=== PATIENT | male | born 1960 | race Caucasian/White ===

== ENCOUNTER → 2022-10-10 | Outpatient (CLI) | payer MEDICAID, SELFPAY ==
--- NOTE | 2022-10-10 13:06 | CT_ITS ---
INDICATION: SINUSITIS EXAMINATION: CT SINUSES - CT Sinuses W/O Contrast Injection TECHNIQUE: Helically acquired images were obtained of the paranasal sinuses. A radiation dose optimization technique was used for this scan. IV Contrast dosage and agent: None. COMPARISON: None. FINDINGS: FRONTAL SINUSES AND RECESSES: Minimal mucosal thickening left frontal sinus extending into the frontoethmoidal recess which is opacified. ETHMOID AIR CELLS: No significant sinus disease right ethmoid air cells. Left ethmoid air cells are also completely opacified. MAXILLARY SINUSES: Bilateral maxillary sinuses are completely opacified. Axilla sinus cao show thickening and sclerosis suggesting chronic infectious etiology. Additional ossification seen on along the roof of the left maxillary sinus. The left uncinate process and middle terminate is absent likely due to erosive changes. There is a replaced, somewhat lamellated irregular calcification in this area. Right uncinate process is also absent and the infundibulum is completely opacified. OSTIOMEATAL COMPLEXES: Erosive changes bilaterally. SPHENOID SINUSES: Trace mucosal thickening on the left. Patent sphenoethmoidal recesse. ANCILLARY FINDINGS: ORBITS: Unremarkable. VISUALIZED DENTITION: Absent molar teeth right maxilla. Periapical lucency left first and second molar. Small periapical lucency left mandibular central incisor Visualized intracranial contents included in the [id number] show no intracranial hemorrhage or mass lesion or mass effect. . Cerclage wire in the midline anterior maxilla. Moderate C1-C2 degenerative changes. CT/Sinus/Facial Bone IMPRESSION: Chronic sinus disease with erosive changes bilateral uncinate processes and left middle turbinate and significant maxillary sinus wall thickening consistent with periostitis. Irregular calcification in the region of the left middle turbinate. Mostly opacified left sphenoid sinus. Opacified left frontoethmoidal recess. Electronically Signed: Dhruv Markham DO at 22:21 EDT ,
== END | disposition home or self-care (01) ==
PROVIDERS: Referring Provider Otolaryngology; Visit Provider Otolaryngology
DX: J32.8 Other chronic sinusitis (principal)
CPT/HCPCS: 70486

== ENCOUNTER → 2022-10-17 | Outpatient (CLI) | payer MEDICAID, SELFPAY | END | disposition home or self-care (01) | LOC: LABSPEC 15:16 | PROVIDERS: Referring Provider Otolaryngology; Visit Provider Otolaryngology | DX: J01.90 Acute sinusitis, unspecified (principal) | CPT/HCPCS: 87070; 87205 ==

== ENCOUNTER 2022-11-12 06:32 | Day surgery (SDC) | payer MEDICAID, SELFPAY ==
[2022-11-12] VITALS (14 sets, daily range): BP systolic 139–194; BP diastolic 78–128; PULSE 67–96; RESP 16–17; TEMP 36.2–37.2; O2SAT 93–99; BMI 28.7
--- NOTE | 2022-11-12 | SEP_PTH ---
PATIENT: DYLLAN BURKS Jr. LOC: [facility] – [place] U#:[id number] AGE/SX: 62/M ROOM: RE11/12/[address]: Dr. Ricky Thornton MD : 1960 BED: DIS: 11/12/2022 SPEC #: [id number] RECD: 11/12/22 13:14 STATUS: MICHEL COLLINS #: [id number] OSMANI: 11/12/22 00:[address]: Ricky Thornton DEPT: SURGICAL PATHOLOGY RECD BY: Surya Lane Tissues: A - Nasal septum, NOS B - Ethmoid sinus, NOS C - Ethmoid sinus, NOS Procedures: Decalcification bone/plaque Special Stain Group I Surgery Specimen Level III GMS Stain (control) HEADER OPERATION: Functional endoscopic sinus surgery, septoplasty PRE-OP DIAGNOSIS: Chronic sinusitis, allergic rhinitis, nasal congestion, deviated septum, hypertrophy of nasal turbinates TISSUE SUBMITTED: A. Septum, B. Left sinus contents, C. Right sinus contents MICROSCOPIC DIAGNOSIS A. Nasal Septum, septoplasty: Fragments of hyalin cartilage and bone with reparative change (clinically deviated septum). B. Left sinus contents, curettings: Acute and chronic sinusitis. Fungal organisms consistent with aspergillus species. C. Right sinus contents, curettings: Chronic sinusitis. No evidence of fungal organisms. AM:sandra 11/14/22 MICROSCOPIC DESCRIPTION Slides are reviewed. GROSS DESCRIPTION A. Received in fixative is one container labeled with the patient's name and designated septum. The specimen consists of three fragments of bone and cartilage measuring in aggregate 2 x 1.5 x 0.2 cm. The specimen is totally submitted in one cassette after decalcification. B. Received is one container labeled with the patient name and designated left sinus contents. The specimen consists of multiple irregular fragments of hemorrhagic soft tissue mixed possible fragments of bone that in aggregate measure 5 x 5 x 2 cm. Food Service Ambassador tissue is submitted in two cassettes after decalcification. C. Received is one container labeled with the patient name and designated right sinus contents. The specimen consists of multiple irregular fragments of hemorrhagic soft tissue mixed possible fragments of bone that in aggregate measure 4 x 4 x 2 cm. Food Service Ambassador tissue is submitted in two cassettes after decalcification. /SJ: 11/12/22 TC:2 CPT:85227 x3, 96879 x2, 69803 x3
--- NOTE | 2022-11-12 | SEP_PTH ---
PATIENT: DYLLAN BURKS Jr. LOC: [facility] – [place] U#:[id number] AGE/SX: 62/M ROOM: RE11/12/[address]: Dr. Ricky Thornton MD : 1960 BED: DIS: 11/12/2022 SPEC #: [id number] RECD: 11/12/22 13:14 STATUS: MICHEL SARABIASayra #: [id number] OSMANI: 11/12/22 00:[address]: Ricky Thornton DEPT: SURGICAL PATHOLOGY RECD BY: Surya Lane Tissues: A - Nasal septum, NOS B - Ethmoid sinus, NOS C - Ethmoid sinus, NOS Procedures: Surgery Specimen Level III Surgery Specimen Level IV HEADER OPERATION: Functional endoscopic sinus surgery, septoplasty PRE-OP DIAGNOSIS: Chronic sinusitis, allergic rhinitis, nasal congestion, deviated septum, hypertrophy of nasal turbinates TISSUE SUBMITTED: A. Septum, B. Left sinus contents, C. Right sinus contents MICROSCOPIC DIAGNOSIS A. Nasal Septum, septoplasty: Fragments of hyalin cartilage and bone with reparative change (clinically deviated septum). B. Left sinus contents, curettings: Acute and chronic sinusitis. Fungal organisms consistent with aspergillus species. C. Right sinus contents, curettings: Chronic sinusitis. Fungal organisms consistent with aspergillus species. AM:am 11/14/22 MICROSCOPIC DESCRIPTION Slides are reviewed. GROSS DESCRIPTION A. Received in fixative is one container labeled with the patient's name and designated septum. The specimen consists of three fragments of bone and cartilage measuring in aggregate 2 x 1.5 x 0.2 cm. The specimen is totally submitted in one cassette after decalcification. B. Received is one container labeled with the patient name and designated left sinus contents. The specimen consists of multiple irregular fragments of hemorrhagic soft tissue mixed possible fragments of bone that in aggregate measure 5 x 5 x 2 cm. Brand Sales Consultant tissue is submitted in two cassettes after decalcification. C. Received is one container labeled with the patient name and designated right sinus contents. The specimen consists of multiple irregular fragments of hemorrhagic soft tissue mixed possible fragments of bone that in aggregate measure 4 x 4 x 2 cm. Brand Sales Consultant tissue is submitted in two cassettes after decalcification. /SJ: 11/12/22 TC:2 CPT:50061 x3, 99462 x2, 80093 x3
--- NOTE | 2022-11-12 06:51 | EKG12_ITS ---
Test Reason : PREOP Blood Pressure : / mmHG Vent. Rate : 052 BPM Atrial Rate : 052 BPM P-R Int : 150 ms QRS Dur : 098 ms QT Int : 398 ms P-R-T Axes : 028 018 008 degrees QTc Int : 370 ms Sinus bradycardia with sinus arrhythmia Nonspecific T wave abnormality Abnormal ECG No previous ECGs available Confirmed by PERRY MORENO, LUKAS ([id number]), assistant film editor JAIR BRIAN ([id number]) on 11/25/2022 12:18:27 PM Referred By: Scot Thornton Confirmed By:LUKAS AMADOR MD
[2022-11-12] MEDS: Lactated Ringers 1,000 ML 15 ML IV (07:18)
[2022-11-12 07:34] LABS: Anion Gap 5 (5-15); BUN 23 mg/dL (7-18); BUN/Creat Ratio 24.2 RATIO (10-20); Calcium,Total 8.7 mg/dL (8.5-10.1); Chloride 105 mmol/L (98-107); Creatinine, Serum 0.95 mg/dL (0.70-1.30); EST Glomerular Filtration Rate 85 mL/min (>60); Est Glom Filt Rate - Afr Amer 102 mL/min (>60); Estimated Creatinine Clearance 81.11 ml/min; Glucose 113 mg/dL (74-106); Potassium 3.5 mmol/L (3.5-5.1); Sodium Level 138 mmol/L (136-145)
--- NOTE | 2022-11-12 08:12 | DCINST_ITS ---
Discharge Instructions Diet Discharge Diet: No restrictions Activity Discharge Activity: Return to Normal Activity (light activity, no heavy lifting) Dressing / Incision Call your doctor if your incision/area has: Sudden Increased Bleeding Follow Up Care Please Follow Up With: Ricky Thornton MD When: 1 week as scheduled Test Results: Test results from this visit will be discussed in further detail at your follow- up appointment, if applicable. Discharge Plan Admission Attending Provider: Ricky Thornton Primary Care Provider: ANA MEEHAN Discharge Orders/Prescriptions Prescriptions: No Action losartan-hydrochlorothiazide [Hyzaar] 100-12.5 mg tablet 1 tab PO DAILY trazodone 100 mg tablet 100 mg PO DAILY gabapentin 300 mg capsule 300 mg PO BID creatine monohydrate Powder 1 ea PO DAILY Whey Protein 20 gram-140 kcal/39 gram powder 1 ea PO DAILY Referrals / Follow Up: ANA MEEHAN [Other] Disposition Disposition (needs filled in before D/C Order can be placed): Home, Self Care
--- NOTE | 2022-11-12 08:13 | OP.PCM_ITS ---
Problems Associated Problem List Diagnoses (1) Chronic pansinusitis: (2) Nasal congestion: (3) Nasal septal deviation: (4) Hypertrophy of inferior nasal turbinate: (5) Nasal polyposis: Report of Operation Date of Procedure: 11/12/22 Pre-Operative Diagnosis: 1. nasal congestion 2. nasal septal deviation 3. Nasal polyposis 4. inferior turbinate hypertrophy, right and left 5. chronic pansinusitis Post-Operative Diagnosis: 1. nasal congestion 2. nasal septal deviation 3. Nasal polyposis 4. inferior turbinate hypertrophy, right and left 5. chronic pansinusitis Surgery/Procedure Performed:: 1. endoscopic maxillary antrostomy with removal of contents, right and left 2. endoscopic total ethmoidecotmy, right and left 3. endoscopic sphenoidotomy with removal of contents, right and left 4. endoscopic frontal sinus exploration removal of contents, right and left 5. septoplasty 6. submucous and bony resection inferior turbinates, right and left Surgeon: Ricky Thornton Type of Anesthesia: General Description of Procedure: On the day of the procedure, after appropriate informed consent was obtained, t he patient was brought to the operating room and placed in a supine position on the operating room table. The patient was placed under general endotracheal anesthesia by the anesthesiologist. The endotracheal tube was secured.? image guidance navigation was set up on the face and accuracy was confirmed.? the nose was injected with lidocaine/epinephrine and decongested with oxymetazoline- soaked pledgets.? a marginal incision was made with a #15 blade on the left side.? a submucoperichondrial plane was developed on the patient's left side with a quyen elevator.? this was taken posteriorly to the bony/cartilaginous junction and inferiorly to the maxillary crest.? after an L-strut was marked, a large leftward defection and 2cm bony spur were removed with a D-knife and kiel rey.? the head of the right and left turbinates were injected with lidocaine/epinephrine.? the head of the left inferior turbinate was incised with a 15 blade, dissected submucosally with a quyen elevator, reduced using suction electrocautery and outfractured using a boies elevator. bony reduction was performed with a thru cut the head of the right inferior turbinate was incised with a 15 blade, dissected submucosally with a quyen elevator, reduced using suction electrocautery and outfractured using a boies elevator.? bony reduction was performed with a thru cut the zero degree endoscope was used to evaluate the nasal cavity.? the superior attachment of the right and left middle turbinate and uncinate processes were injected with lidocaine/epinephrine.? the left nasal cavity was evaluated.? a large amount of left middle meatus fungus was removed with the sution. the middle turbinate was medialized.? a maxillary antrostomy and uncinectomy were performed with a quyen elevator and a gucci cut.? the antrostomy was widened with a back-biter.? purulent material was evacuated.? the ethmoid bulla was entered bluntly with the suction.? a total ethmoidectomy was performed with a curette and an upgoing blakesley.? this was taken superiorly to the skull base and laterally to the lamina.? a stankewicz maneuver was performed and no laminar defect was noted.? the natural sphenoid os was widened with the microdebrider and contents were evacuated.? fungus was removed from the sphenoethmoidal recess.? the frontal recess was explored and contents were evacuated.? hemostasis was achieved with suction cautery; jh was placed. the right nasal cavity was evaluated.? the middle turbinate was medialized.? a maxillary antrostomy and uncinectomy were performed with a quyen elevator and a gucci cut.? the antrostomy was widened with a back-biter.? purulent material was evacuated.? the ethmoid bulla was entered bluntly with the suction.? a total ethmoidectomy was performed with a curette and an upgoing blakesley.? this was taken superiorly to the skull base and laterally to the lamina.? a stankewicz maneuver was performed and no laminar defect was noted.? the natural sphenoid os was widened with the microdebrider and contents were evacuated.? fungus was removed from the sphenoethmoidal recess.? the frontal recess was explored and contents were evacuated.? hemostasis was achieved with suction cautery; jh was placed. mcgraw splints were sutured into place.? a nasogastric tube was inserted orally and contents were evacuated.? the table was rotated 90 degrees toward the anesthesiologist and? was subsequently extubated uneventfully.? he was transferred to the PACU in stable condition.
[2022-11-12] MEDS: Clindamycin 900 MG/50 ML BAG 75 MG IV (08:36)
[2022-11-12] MEDS: Lidocaine 1% /Epi 1:100 (20ml) 20 ML Vial (09:06)
[2022-11-12] MEDS: Oxymetazoline 0.05% 1 SPRAY SPRAY.BTL 15 SPRAY (09:47)
[2022-11-12] MEDS: Mupirocin Ointment 22gm Tube 1 APPLIC (10:32)
--- NOTE | 2022-11-12 11:00 | SUR.PHASEI ---
Informed Dr. Dawn of pt's elevated bp. Dr. Richardson aware of pt's bp prior to leaving beside. Verbal order for 5mg Labetalol [id number] up to 25mg for diastolic bp under 100mmhg.
[2022-11-12] MEDS: Labetalol (Prefilled) 20 MG/4 ML 5 MG IV ×5 (11:42→12:37)
== END 2022-11-12 13:55 | disposition home or self-care (01) ==
LOC: SDC 06:33 → AC 06:34
PROVIDERS: Referring Provider Otolaryngology; Visit Provider Otolaryngology
PROC: (CPT 31267; principal; 2022-11-12 08:00)
DX: J34.2 Deviated nasal septum (principal); J01.90 Acute sinusitis, unspecified; R09.81 Nasal congestion; J34.3 Hypertrophy of nasal turbinates; J32.4 Chronic pansinusitis; J33.9 Nasal polyp, unspecified; I10 Essential (primary) hypertension; Z79.899 Other long term (current) drug therapy; Z87.891 Personal history of nicotine dependence
CPT/HCPCS: 31267; 31255; 30520; 30140; 80048; 88304; 88305; 88311; 88312; 93005; J7120; J2405